=== PATIENT | female | born 1950 | race Caucasian/White ===

== ENCOUNTER 2017-12-19 18:39 | Emergency (ER) | payer MEDICARE, MEDICAID ==
[~2017-12-19] VITALS: Ht 165.1 cm; Wt 250.0 kg
[~2017-12-19 18:39] MED LIST: CIPR-230 PO; DICL75TA6 PO; DOCU100C40 PO; DULO30CA51 PO; HYDR-3965 PO; LANTUS SQ; LOVA20TA2 PO; MULT-342 PO; OXYC-150 PO; POLY17PO10 PO; TOLT4CAP14 PO; VALS80TA2 PO
[2017-12-19 18:41] VITALS: BP 111/40
[2017-12-19] MEDS ORDERED: HYDROcodone/acetaminophen 10/325mg tab PO ONE (23:00)
[2017-12-21] MEDS ORDERED: INSU100I29 SQ (03:59)
[2017-12-21] MEDS ORDERED: DULO20CA50 PO (03:59)
[2017-12-21] MEDS ORDERED: OXYB5TAB11 PO (03:59)
== END 2017-12-20 00:34 | disposition home or self-care (01) ==
LOC: ER 18:39
DX: S41.111A Laceration without foreign body of right upper arm, initial encounter (principal); E66.01 Morbid (severe) obesity due to excess calories; E11.9 Type 2 diabetes mellitus without complications; G89.29 Other chronic pain; Z90.49 Acquired absence of other specified parts of digestive tract; Z98.890 Other specified postprocedural states; Z88.5 Allergy status to narcotic agent; Z79.4 Long term (current) use of insulin; Z79.899 Other long term (current) drug therapy; W19.XXXA Unspecified fall, initial encounter; Y93.01 Activity, walking, marching and hiking; Y92.89 Other specified places as the place of occurrence of the external cause; Y99.9 Unspecified external cause status
CPT/HCPCS: 82948; 99283

== ENCOUNTER 2017-12-21 01:31 | Inpatient (IN) | payer MEDICARE, MEDICAID ==
[~2017-12-21] VITALS: Ht 165.1 cm; Wt 250.0 kg
[2017-12-21 02:56] LABS: EOSINOPHILS # (AUTO) 0.3 X10'3 (0-0.9); NEUTROPHILS # (AUTO) 7.4 X10'3 (1.8-7.7); PARTIAL THROMBOPLASTIN TIME 29 SECONDS (22-32); PROTHROMBIN TIME 9.8 SECONDS (9.0-12.0)
[2017-12-21 02:59] LABS: ALANINE AMINOTRANSFERASE 20 U/L (12-78); ALBUMIN 2.6 G/DL (3.4-5.0); ALBUMIN/GLOBULIN RATIO 0.5 (1.1-1.5); ALKALINE PHOSPHATASE 121 IU/L (46-116); ANION GAP 9 (8-16); ASPARTATE AMINO TRANSFERASE 15 U/L (10-37); BILIRUBIN,TOTAL 0.3 MG/DL (0.1-1.0); BLOOD UREA NITROGEN 65 MG/DL (7-18); BUN/CREATININE RATIO 24.3 (6.6-38.0); CHLORIDE 102 MMOL/L (99-107); CREATININE 2.67 MG/DL (0.40-0.90); GLUCOSE 201 MG/DL (70-104); MAGNESIUM 2.6 MG/DL (1.5-2.4); POTASSIUM 5.4 MMOL/L (3.5-5.1); SODIUM 136 MMOL/L (135-145); TOTAL CARBON DIOXIDE 24.7 MMOL/L (24-32); TOTAL PROTEIN 7.4 G/DL (6.4-8.2); eGFR 18 ML/MIN
[2017-12-21 03:01] LABS: BASOPHILS % (AUTO) 0.5 % (0-1); HEMATOCRIT 37.5 % (35.0-45.0); HEMOGLOBIN 12.3 g/dl (12.0-16.0); LYMPHOCYTES # (AUTO) 1.2 X10'3 (1.1-4.8); MEAN CORPUSCULAR HEMOGLOBIN 29.8 PG (27.0-31.0); MEAN CORPUSCULAR HGB CONC 32.7 % (33.0-36.5); MEAN CORPUSCULAR VOLUME 91.2 FL (78-98); MEAN PLATELET VOLUME 7.8 FL (7.4-10.4); MONOCYTES % (AUTO) 10.1 % (2-12); NEUTROPHILS % (AUTO) 74.4 % (42-75); PLATELET COUNT 344 X10'3 (140-440); RED BLOOD COUNT 4.11 X10'6 (4.20-5.60); RED CELL DISTRIBUTION WIDTH 13.9 % (11.5-14.5)
[2017-12-21 03:10] LABS: CLARITY,URINE CLEAR (Clear); COLOR,URINE YELLOW (Yellow); GLUCOSE, URINE NEGATIVE (Neg); KETONES,URINE NEGATIVE (Neg); LEUKOCYTE ESTERASE ,URINE NEGATIVE (Neg); NITRITES, URINE NEGATIVE (Neg); OCCULT BLOOD,URINE NEGATIVE (Neg); PH,URINE 5.5 (4.8-8.0); PROTEIN,URINE NEGATIVE (Neg); UA COLLECTION TYPE FOLEY CATH; UROBILINOGEN,URINE 0.2 E.U/dL (0.2-1.0)
[2017-12-21] MEDS ORDERED: normal saline 1000ML IV soln IVB ONE (03:15)
[2017-12-21] MEDS ORDERED: clindamycin 600mg/D5W 50ml 50 ML IV ONE (03:15)
[2017-12-21] MEDS ORDERED: normal saline 1000ml 1,000 ML IV SCH (03:32)
[2017-12-21] MEDS ORDERED: acetaminophen 650mg rectal suppository RC PRN (03:35)
[2017-12-21] MEDS ORDERED: dextrose ORAL solution 15 GM/59 ML bottle PO PRN ×2 (03:35)
[2017-12-21] MEDS ORDERED: acetaminophen 325mg tablet PO PRN ×2 (03:35)
[2017-12-21] MEDS ORDERED: diphenhydrAMINE 50 mg/ml inj IV PRN (03:35)
[2017-12-21] MEDS ORDERED: glucagon, human recombinant 1mg kit SUBCUT PRN (03:35)
[2017-12-21] MEDS ORDERED: morphine 2 MG/ML inj. syringe IV PRN ×2 (03:35)
[2017-12-21] MEDS ORDERED: metoclopramide 5 mg/ml inj IV PRN (03:35)
[2017-12-21] MEDS ORDERED: mag hydrox/Alum hydrox/simeth 30ml oral suspension PO PRN (03:35)
[2017-12-21] MEDS ORDERED: dextrose 50%-water 50ml dispensing syringe IV PRN ×2 (03:35)
[2017-12-21] MEDS ORDERED: magnesium hydroxide 30ml (MOM) UD suspension PO PRN (03:35)
[2017-12-21] MEDS ORDERED: MESSAGE TO PHARMACY PO ONE (03:35)
[2017-12-21] MEDS ORDERED: diphenhydrAMINE 25mg capsule PO PRN (03:35)
[2017-12-21] MEDS ORDERED: bisacodyl 10mg suppository rectal RC PRN (03:35)
[2017-12-21] MEDS ORDERED: HYDROmorphone 1 mg/ml syringe IV PRN ×2 (03:35)
[2017-12-21] MEDS ORDERED: sodium polystyrene sulfonate 15gm/60ml oral suspension PO ONE (03:40)
[2017-12-21] MEDS ORDERED: albuterol 2.5 MG/3 ML nebule NEB ONE (03:40)
[2017-12-21] MEDS ORDERED: DULO20CA50 PO (03:59)
[2017-12-21] MEDS ORDERED: INSU100I29 SQ (03:59)
[2017-12-21] MEDS ORDERED: OXYB5TAB11 PO (03:59)
[2017-12-21 04:02] LABS: HEMOGLOBIN A1C 7.3 % (4.5-6.2)
[2017-12-21 04:04] LABS: LIPASE 59 U/L (73-393); PHOSPHORUS 3.6 MG/DL (2.3-4.5); TROPONIN I < 0.04 NG/ML (0.0-0.05)
[2017-12-21] MEDS ORDERED: vancomycin/NS 1 GM ADD-VANTAGE 250 ML X 1 DOSE IV ONE ×2 (05:40→08:00)
[2017-12-21 08:00] VITALS: BP 115/43
[2017-12-21] MEDS ORDERED: piperacillin-tazo 2.25gm/50ml 50 ML IV SCH (08:00)
[2017-12-21] MEDS: docusate sod 100mg capsule PO SCH ×2 (08:59→20:07)
[2017-12-21] MEDS: methylPREDNISolone sod succ 125mg/2ml vial IV SCH ×2 (08:59→20:12)
[2017-12-21] MEDS: furosemide 40mg/4ml inj IV SCH ×2 (08:59→20:06)
[2017-12-21] MEDS: heparin, porcine 5000 units/ml vial SQ SCH ×2 (09:00→16:38)
[2017-12-21 10:08] LABS: CREATINE KINASE 160 U/L (26-192)
[2017-12-21 11:44] VITALS: BP 107/67
[2017-12-21] MEDS ORDERED: pneumococcal 23-VAL P-sac vacc 25 mcg/0.5ml vial IMVAC ONE (13:15)
[2017-12-21] MEDS: insulin Lispro (HumaLOG) vial - multi-dose SQ SCH ×2 (18:57→21:41)
[2017-12-21 20:00] VITALS: BP 116/49
[2017-12-22] VITALS: BP 109/53
[2017-12-22] MEDS: heparin, porcine 5000 units/ml vial SQ SCH ×3 (00:13→16:12)
[2017-12-22 04:58] LABS: BASOPHILS % (AUTO) 0.3 % (0-1); EOSINOPHILS % (AUTO) 0 % (0-6); HEMATOCRIT 36.1 % (35.0-45.0); HEMOGLOBIN 11.6 g/dl (12.0-16.0); LYMPHOCYTES # (AUTO) 0.7 X10'3 (1.1-4.8); LYMPHOCYTES % (AUTO) 6.2 % (21-51); MEAN CORPUSCULAR HEMOGLOBIN 29.4 PG (27.0-31.0); MEAN CORPUSCULAR HGB CONC 32.2 % (33.0-36.5); MEAN CORPUSCULAR VOLUME 91.2 FL (78-98); MEAN PLATELET VOLUME 8.2 FL (7.4-10.4); MONOCYTES # (AUTO) 0.2 X10'3 (0-0.9); NEUTROPHILS # (AUTO) 9.7 X10'3 (1.8-7.7); NEUTROPHILS % (AUTO) 91.5 % (42-75); PLATELET COUNT 330 X10'3 (140-440); RED BLOOD COUNT 3.96 X10'6 (4.20-5.60); RED CELL DISTRIBUTION WIDTH 14.3 % (11.5-14.5); WHITE BLOOD COUNT 10.6 X10'3 (4.5-11.0)
[2017-12-22 05:26] LABS: ALANINE AMINOTRANSFERASE 18 U/L (12-78); ALBUMIN 2.3 G/DL (3.4-5.0); ALBUMIN/GLOBULIN RATIO 0.5 (1.1-1.5); ALKALINE PHOSPHATASE 105 IU/L (46-116); ANION GAP 9 (8-16); ASPARTATE AMINO TRANSFERASE 9 U/L (10-37); BILIRUBIN,TOTAL 0.2 MG/DL (0.1-1.0); BLOOD UREA NITROGEN 53 MG/DL (7-18); BUN/CREATININE RATIO 26.5 (6.6-38.0); CALCIUM 8.7 MG/DL (8.5-10.1); CHLORIDE 105 MMOL/L (99-107); GLUCOSE 343 MG/DL (70-104); POTASSIUM 5.4 MMOL/L (3.5-5.1); SODIUM 139 MMOL/L (135-145); TOTAL CARBON DIOXIDE 24.8 MMOL/L (24-32); TOTAL PROTEIN 6.7 G/DL (6.4-8.2); eGFR 25 ML/MIN
[2017-12-22 07:00] VITALS: BP 121/58
[2017-12-22] MEDS: docusate sod 100mg capsule PO SCH ×2 (08:00→20:00)
[2017-12-22] MEDS: furosemide 40mg/4ml inj IV SCH ×2 (08:00→21:28)
[2017-12-22] MEDS: methylPREDNISolone sod succ 125mg/2ml vial IV SCH (08:00)
[2017-12-22] MEDS: insulin Lispro (HumaLOG) vial - multi-dose SQ SCH ×3 (09:15→18:36)
[2017-12-22] MEDS: nystatin 15 GM powder TP SCH ×2 (13:00→13:58)
[2017-12-22 20:00] VITALS: BP 123/52
[2017-12-22] MEDS: insulin glargine (Lantus) pen - multi-dose SQ SCH (21:39)
[2017-12-23] VITALS: BP 118/55
[2017-12-23] MEDS: heparin, porcine 5000 units/ml vial SQ SCH ×3 (01:46→15:43)
[2017-12-23] MEDS: HYDROcodone/acetaminophen 10/325mg tab PO PRN ×2 (03:11→13:19)
[2017-12-23 03:40] LABS: BASOPHILS # (AUTO) 0.1 X10'3 (0-0.2); BASOPHILS % (AUTO) 0.3 % (0-1); EOSINOPHILS % (AUTO) 0.1 % (0-6); HEMATOCRIT 36.7 % (35.0-45.0); HEMOGLOBIN 11.9 g/dl (12.0-16.0); LYMPHOCYTES # (AUTO) 1.4 X10'3 (1.1-4.8); LYMPHOCYTES % (AUTO) 7.8 % (21-51); MEAN CORPUSCULAR HEMOGLOBIN 29.6 PG (27.0-31.0); MEAN CORPUSCULAR HGB CONC 32.4 % (33.0-36.5); MEAN CORPUSCULAR VOLUME 91.2 FL (78-98); MEAN PLATELET VOLUME 7.6 FL (7.4-10.4); MONOCYTES # (AUTO) 1.4 X10'3 (0-0.9); MONOCYTES % (AUTO) 7.6 % (2-12); NEUTROPHILS # (AUTO) 15.1 X10'3 (1.8-7.7); NEUTROPHILS % (AUTO) 84.2 % (42-75); PLATELET COUNT 409 X10'3 (140-440); RED BLOOD COUNT 4.02 X10'6 (4.20-5.60); RED CELL DISTRIBUTION WIDTH 13.8 % (11.5-14.5); WHITE BLOOD COUNT 17.9 X10'3 (4.5-11.0)
[2017-12-23 03:53] LABS: ALANINE AMINOTRANSFERASE 18 U/L (12-78); ALBUMIN 2.4 G/DL (3.4-5.0); ALBUMIN/GLOBULIN RATIO 0.5 (1.1-1.5); ALKALINE PHOSPHATASE 89 IU/L (46-116); ANION GAP 6 (8-16); ASPARTATE AMINO TRANSFERASE 10 U/L (10-37); BILIRUBIN,TOTAL 0.2 MG/DL (0.1-1.0); BLOOD UREA NITROGEN 58 MG/DL (7-18); BUN/CREATININE RATIO 32.6 (6.6-38.0); CHLORIDE 105 MMOL/L (99-107); CREATININE 1.78 MG/DL (0.40-0.90); GLUCOSE 180 MG/DL (70-104); POTASSIUM 4.8 MMOL/L (3.5-5.1); SODIUM 140 MMOL/L (135-145); TOTAL CARBON DIOXIDE 29.1 MMOL/L (24-32); TOTAL PROTEIN 6.8 G/DL (6.4-8.2); eGFR 28 ML/MIN
[2017-12-23 07:21] VITALS: BP 131/58
[2017-12-23] MEDS: furosemide 40mg/4ml inj IV SCH ×2 (07:50→19:33)
[2017-12-23] MEDS: docusate sod 100mg capsule PO SCH ×2 (07:50→19:21)
[2017-12-23] MEDS: insulin Lispro (HumaLOG) vial - multi-dose SQ SCH ×3 (09:55→19:19)
[2017-12-23 12:35] VITALS: BP 117/52
[2017-12-23] MEDS: fluticasone nasal spray 16GM bottle NS PRN (13:44)
[2017-12-23 18:00] VITALS: BP 133/63
[2017-12-23] MEDS: insulin glargine (Lantus) pen - multi-dose SQ SCH (21:36)
[2017-12-24] VITALS: BP 114/62
[2017-12-24] MEDS: heparin, porcine 5000 units/ml vial SQ SCH ×4 (00:22→23:23)
[2017-12-24] MEDS: HYDROcodone/acetaminophen 10/325mg tab PO PRN ×2 (00:27→12:24)
[2017-12-24 05:10] LABS: BASOPHILS % (AUTO) 0.4 % (0-1); EOSINOPHILS # (AUTO) 0.4 X10'3 (0-0.9); HEMATOCRIT 40.8 % (35.0-45.0); HEMOGLOBIN 13.3 g/dl (12.0-16.0); LYMPHOCYTES % (AUTO) 15.4 % (21-51); MEAN CORPUSCULAR HEMOGLOBIN 29.6 PG (27.0-31.0); MEAN CORPUSCULAR HGB CONC 32.6 % (33.0-36.5); MEAN CORPUSCULAR VOLUME 90.6 FL (78-98); MONOCYTES # (AUTO) 1.3 X10'3 (0-0.9); MONOCYTES % (AUTO) 10.1 % (2-12); NEUTROPHILS # (AUTO) 9.1 X10'3 (1.8-7.7); NEUTROPHILS % (AUTO) 71.1 % (42-75); PLATELET COUNT 420 X10'3 (140-440); RED BLOOD COUNT 4.51 X10'6 (4.20-5.60); RED CELL DISTRIBUTION WIDTH 13.8 % (11.5-14.5); WHITE BLOOD COUNT 12.8 X10'3 (4.5-11.0)
[2017-12-24 05:36] LABS: ALANINE AMINOTRANSFERASE 49 U/L (12-78); ALBUMIN 2.6 G/DL (3.4-5.0); ALBUMIN/GLOBULIN RATIO 0.6 (1.1-1.5); ALKALINE PHOSPHATASE 105 IU/L (46-116); ANION GAP 13 (8-16); ASPARTATE AMINO TRANSFERASE 37 U/L (10-37); BILIRUBIN,TOTAL 0.4 MG/DL (0.1-1.0); BLOOD UREA NITROGEN 61 MG/DL (7-18); BUN/CREATININE RATIO 36.1 (6.6-38.0); CALCIUM 9.3 MG/DL (8.5-10.1); CHLORIDE 102 MMOL/L (99-107); CREATININE 1.69 MG/DL (0.40-0.90); GLUCOSE 166 MG/DL (70-104); POTASSIUM 4.4 MMOL/L (3.5-5.1); SODIUM 143 MMOL/L (135-145); TOTAL CARBON DIOXIDE 28.2 MMOL/L (24-32); TOTAL PROTEIN 7.2 G/DL (6.4-8.2); eGFR 30 ML/MIN
[2017-12-24] MEDS: furosemide 40mg/4ml inj IV SCH ×2 (07:04→20:16)
[2017-12-24] MEDS: docusate sod 100mg capsule PO SCH ×2 (07:05→20:00)
[2017-12-24 07:10] VITALS: BP 121/55
[2017-12-24] MEDS ORDERED: MESSAGE TO NURSING IV ONE (07:30)
[2017-12-24] MEDS: insulin Lispro (HumaLOG) vial - multi-dose SQ SCH ×3 (09:34→18:50)
[2017-12-24 13:18] VITALS: BP 119/47
[2017-12-24] MEDS: fluticasone nasal spray 16GM bottle NS PRN (17:35)
[2017-12-24 19:00] VITALS: BP 114/54
[2017-12-24] MEDS: insulin glargine (Lantus) pen - multi-dose SQ SCH (21:05)
[2017-12-25] VITALS: BP 133/57
[2017-12-25 06:09] LABS: BASOPHILS % (AUTO) 0.3 % (0-1); EOSINOPHILS # (AUTO) 0.3 X10'3 (0-0.9); EOSINOPHILS % (AUTO) 2.9 % (0-6); HEMATOCRIT 44.3 % (35.0-45.0); HEMOGLOBIN 14.3 g/dl (12.0-16.0); LYMPHOCYTES % (AUTO) 16.7 % (21-51); MEAN CORPUSCULAR HEMOGLOBIN 29.2 PG (27.0-31.0); MEAN CORPUSCULAR HGB CONC 32.3 % (33.0-36.5); MEAN CORPUSCULAR VOLUME 90.4 FL (78-98); MEAN PLATELET VOLUME 7.7 FL (7.4-10.4); MONOCYTES # (AUTO) 1.1 X10'3 (0-0.9); MONOCYTES % (AUTO) 9.3 % (2-12); NEUTROPHILS # (AUTO) 8.3 X10'3 (1.8-7.7); NEUTROPHILS % (AUTO) 70.8 % (42-75); PLATELET COUNT 383 X10'3 (140-440); RED CELL DISTRIBUTION WIDTH 13.7 % (11.5-14.5); WHITE BLOOD COUNT 11.8 X10'3 (4.5-11.0)
[2017-12-25 06:21] LABS: ALANINE AMINOTRANSFERASE 81 U/L (12-78); ALBUMIN 2.7 G/DL (3.4-5.0); ALBUMIN/GLOBULIN RATIO 0.6 (1.1-1.5); ALKALINE PHOSPHATASE 120 IU/L (46-116); ANION GAP 12 (8-16); ASPARTATE AMINO TRANSFERASE 44 U/L (10-37); BILIRUBIN,TOTAL 0.6 MG/DL (0.1-1.0); BLOOD UREA NITROGEN 65 MG/DL (7-18); BUN/CREATININE RATIO 39.4 (6.6-38.0); CALCIUM 9.1 MG/DL (8.5-10.1); CHLORIDE 98 MMOL/L (99-107); CREATININE 1.65 MG/DL (0.40-0.90); GLUCOSE 196 MG/DL (70-104); POTASSIUM 4.1 MMOL/L (3.5-5.1); SODIUM 140 MMOL/L (135-145); TOTAL CARBON DIOXIDE 30.3 MMOL/L (24-32); TOTAL PROTEIN 7.3 G/DL (6.4-8.2); eGFR 31 ML/MIN
[2017-12-25 06:50] VITALS: BP 107/67
[2017-12-25] MEDS: furosemide 40mg/4ml inj IV SCH ×2 (06:59→20:27)
[2017-12-25] MEDS: heparin, porcine 5000 units/ml vial SQ SCH ×3 (07:00→23:42)
[2017-12-25] MEDS: docusate sod 100mg capsule PO SCH ×2 (07:02→20:00)
[2017-12-25] MEDS: insulin Lispro (HumaLOG) vial - multi-dose SQ SCH ×3 (10:29→19:01)
[2017-12-25 12:11] VITALS: BP 141/64
[2017-12-25] MEDS: HYDROcodone/acetaminophen 10/325mg tab PO PRN ×2 (12:29→23:53)
[2017-12-25] MEDS ORDERED: DULO20CA50 PO (13:34)
[2017-12-25] MEDS: levoFLOXACIN 750MG TABLET PO SCH (14:53)
[2017-12-25] MEDS: losartan 50mg tablet PO SCH (14:53)
[2017-12-25 19:00] VITALS: BP 99/63
[2017-12-25] MEDS ORDERED: INSULIN DEGLUDEC 70 UNIT SQ SCH (21:00)
[2017-12-25] MEDS: insulin glargine (Lantus) pen - multi-dose SQ SCH (21:38)
[2017-12-26] VITALS: BP 110/50
[2017-12-26] MEDS: ondansetron/PF 4mg/2ml inj IV PRN ×2 (03:40→11:20)
[2017-12-26 06:17] LABS: BASOPHILS % (AUTO) 0.4 % (0-1); EOSINOPHILS # (AUTO) 0.3 X10'3 (0-0.9); EOSINOPHILS % (AUTO) 2.7 % (0-6); HEMATOCRIT 43.3 % (35.0-45.0); HEMOGLOBIN 14.1 g/dl (12.0-16.0); LYMPHOCYTES # (AUTO) 1.8 X10'3 (1.1-4.8); LYMPHOCYTES % (AUTO) 15.2 % (21-51); MEAN CORPUSCULAR HEMOGLOBIN 29.5 PG (27.0-31.0); MEAN CORPUSCULAR HGB CONC 32.6 % (33.0-36.5); MEAN CORPUSCULAR VOLUME 90.3 FL (78-98); MEAN PLATELET VOLUME 7.2 FL (7.4-10.4); MONOCYTES # (AUTO) 0.8 X10'3 (0-0.9); MONOCYTES % (AUTO) 6.9 % (2-12); NEUTROPHILS # (AUTO) 8.9 X10'3 (1.8-7.7); NEUTROPHILS % (AUTO) 74.8 % (42-75); PLATELET COUNT 353 X10'3 (140-440); RED CELL DISTRIBUTION WIDTH 13.7 % (11.5-14.5); WHITE BLOOD COUNT 11.9 X10'3 (4.5-11.0)
[2017-12-26 06:32] LABS: ALANINE AMINOTRANSFERASE 71 U/L (12-78); ALBUMIN 2.6 G/DL (3.4-5.0); ALBUMIN/GLOBULIN RATIO 0.6 (1.1-1.5); ALKALINE PHOSPHATASE 111 IU/L (46-116); ANION GAP 7 (8-16); ASPARTATE AMINO TRANSFERASE 30 U/L (10-37); BILIRUBIN,TOTAL 0.5 MG/DL (0.1-1.0); CALCIUM 8.8 MG/DL (8.5-10.1); CHLORIDE 98 MMOL/L (99-107); CREATININE 1.75 MG/DL (0.40-0.90); GLUCOSE 240 MG/DL (70-104); POTASSIUM 4.3 MMOL/L (3.5-5.1); SODIUM 137 MMOL/L (135-145); TOTAL CARBON DIOXIDE 31.8 MMOL/L (24-32); eGFR 29 ML/MIN
[2017-12-26 07:01] LABS: BLOOD UREA NITROGEN 72 MG/DL (7-18); BUN/CREATININE RATIO 41.1 (6.6-38.0)
[2017-12-26 07:26] VITALS: BP 100/56
[2017-12-26] MEDS: heparin, porcine 5000 units/ml vial SQ SCH ×2 (07:42→15:47)
[2017-12-26] MEDS: duloxetine 30mg CAPSULE.DR PO SCH (07:42)
[2017-12-26] MEDS: atorvastatin 10mg tablet PO SCH (07:43)
[2017-12-26] MEDS: docusate sod 100mg capsule PO SCH ×2 (07:44→21:28)
[2017-12-26] MEDS: losartan 50mg tablet PO SCH (08:00)
[2017-12-26] MEDS: insulin Lispro (HumaLOG) vial - multi-dose SQ SCH ×3 (09:21→18:44)
[2017-12-26] MEDS: furosemide 40mg tablet PO SCH (09:21)
[2017-12-26] MEDS: levoFLOXACIN 750MG TABLET PO SCH (11:15)
[2017-12-26 11:30] VITALS: BP 102/48
[2017-12-26] MEDS: HYDROcodone/acetaminophen 10/325mg tab PO PRN ×2 (13:19→22:34)
[2017-12-26 19:00] VITALS: BP_SYST 108; BP_SYST 99; BP_DIAS 44; BP_DIAS 68
[2017-12-26] MEDS: insulin glargine (Lantus) pen - multi-dose SQ SCH (23:12)
[2017-12-27] VITALS: BP 104/47
[2017-12-27] MEDS: heparin, porcine 5000 units/ml vial SQ SCH ×4 (00:23→23:32)
[2017-12-27] MEDS: ondansetron/PF 4mg/2ml inj IV PRN (05:44)
[2017-12-27 07:00] VITALS: BP 93/44
[2017-12-27] MEDS: furosemide 40mg tablet PO SCH (08:00)
[2017-12-27] MEDS: losartan 50mg tablet PO SCH (08:00)
[2017-12-27] MEDS: docusate sod 100mg capsule PO SCH ×2 (08:22→19:16)
[2017-12-27] MEDS: duloxetine 30mg CAPSULE.DR PO SCH (08:22)
[2017-12-27] MEDS: lactobacillus rhamnosus 10,000 MMU CELLS/CAPSULE PO SCH ×2 (08:22→19:16)
[2017-12-27] MEDS: atorvastatin 10mg tablet PO SCH (08:24)
[2017-12-27] MEDS: HYDROcodone/acetaminophen 10/325mg tab PO PRN ×2 (08:27→23:33)
[2017-12-27] MEDS: insulin Lispro (HumaLOG) vial - multi-dose SQ SCH ×4 (08:36→22:43)
[2017-12-27 09:54] VITALS: BP 116/48
[2017-12-27 13:34] VITALS: BP 113/50
[2017-12-27 19:00] VITALS: BP 107/39
[2017-12-27] MEDS: temazepam 15mg capsule PO PRN (22:40)
[2017-12-27] MEDS: insulin glargine (Lantus) pen - multi-dose SQ SCH (22:45)
[2017-12-28] VITALS: BP 102/44
[2017-12-28 05:21] LABS: CHOL/HDL RATIO 3.6 (0.00-4.99); CHOLESTEROL 144 MG/DL (0-200); HDL CHOLESTEROL 40 MG/DL (35-60); LDL CHOLESTEROL 87 MG/DL (50-100); TRIGLYCERIDES 124 MG/DL (20-135)
[2017-12-28 07:00] VITALS: BP 99/28
[2017-12-28] MEDS: losartan 50mg tablet PO SCH (08:00)
[2017-12-28] MEDS: furosemide 40mg tablet PO SCH (08:00)
[2017-12-28] MEDS: atorvastatin 10mg tablet PO SCH (08:59)
[2017-12-28] MEDS: duloxetine 30mg CAPSULE.DR PO SCH (08:59)
[2017-12-28] MEDS: lactobacillus rhamnosus 10,000 MMU CELLS/CAPSULE PO SCH ×2 (08:59→21:03)
[2017-12-28] MEDS: docusate sod 100mg capsule PO SCH ×2 (08:59→21:03)
[2017-12-28] MEDS: heparin, porcine 5000 units/ml vial SQ SCH ×2 (09:00→17:00)
[2017-12-28] MEDS: HYDROcodone/acetaminophen 5mg/325mg tablet PO PRN (09:02)
[2017-12-28] MEDS: insulin Lispro (HumaLOG) vial - multi-dose SQ SCH ×4 (09:10→21:00)
[2017-12-28 11:00] VITALS: BP 96/51
[2017-12-28] MEDS: levoFLOXACIN 750MG TABLET PO SCH (11:20)
[2017-12-28 20:00] VITALS: BP 124/42
[2017-12-28] MEDS: insulin glargine (Lantus) pen - multi-dose SQ SCH (21:02)
[2017-12-28] MEDS: HYDROcodone/acetaminophen 10/325mg tab PO PRN (21:06)
[2017-12-28] MEDS: polyethylene glycol 3350 17gm powd pack PO SCH (21:07)
[2017-12-29] VITALS: BP 109/44
[2017-12-29] MEDS: heparin, porcine 5000 units/ml vial SQ SCH ×4 (01:27→23:49)
[2017-12-29 05:01] LABS: BASOPHILS # (AUTO) 0.1 X10'3 (0-0.2); BASOPHILS % (AUTO) 0.6 % (0-1); EOSINOPHILS # (AUTO) 0.5 X10'3 (0-0.9); EOSINOPHILS % (AUTO) 4.3 % (0-6); HEMATOCRIT 38.5 % (35.0-45.0); HEMOGLOBIN 12.5 g/dl (12.0-16.0); LYMPHOCYTES # (AUTO) 2.6 X10'3 (1.1-4.8); LYMPHOCYTES % (AUTO) 23.8 % (21-51); MEAN CORPUSCULAR HEMOGLOBIN 29.3 PG (27.0-31.0); MEAN CORPUSCULAR HGB CONC 32.6 % (33.0-36.5); MEAN CORPUSCULAR VOLUME 89.9 FL (78-98); MONOCYTES # (AUTO) 1.3 X10'3 (0-0.9); MONOCYTES % (AUTO) 12.3 % (2-12); NEUTROPHILS # (AUTO) 6.3 X10'3 (1.8-7.7); PLATELET COUNT 282 X10'3 (140-440); RED BLOOD COUNT 4.28 X10'6 (4.20-5.60); WHITE BLOOD COUNT 10.8 X10'3 (4.5-11.0)
[2017-12-29 05:19] LABS: ALANINE AMINOTRANSFERASE 59 U/L (12-78); ALBUMIN 2.5 G/DL (3.4-5.0); ALBUMIN/GLOBULIN RATIO 0.6 (1.1-1.5); ALKALINE PHOSPHATASE 101 IU/L (46-116); ANION GAP 9 (8-16); ASPARTATE AMINO TRANSFERASE 29 U/L (10-37); BILIRUBIN,TOTAL 0.5 MG/DL (0.1-1.0); BLOOD UREA NITROGEN 63 MG/DL (7-18); BUN/CREATININE RATIO 40.9 (6.6-38.0); CALCIUM 9.3 MG/DL (8.5-10.1); CHLORIDE 101 MMOL/L (99-107); CREATININE 1.54 MG/DL (0.40-0.90); GLUCOSE 200 MG/DL (70-104); SODIUM 138 MMOL/L (135-145); TOTAL PROTEIN 6.4 G/DL (6.4-8.2); eGFR 34 ML/MIN
[2017-12-29 07:00] VITALS: BP_SYST 111; BP_SYST 137; BP_DIAS 49; BP_DIAS 84
[2017-12-29] MEDS: duloxetine 30mg CAPSULE.DR PO SCH (08:30)
[2017-12-29] MEDS: atorvastatin 10mg tablet PO SCH (08:30)
[2017-12-29] MEDS: lactobacillus rhamnosus 10,000 MMU CELLS/CAPSULE PO SCH ×2 (08:30→19:05)
[2017-12-29] MEDS: docusate sod 100mg capsule PO SCH ×2 (08:31→19:05)
[2017-12-29] MEDS: furosemide 40mg tablet PO SCH (08:31)
[2017-12-29] MEDS: losartan 50mg tablet PO SCH (08:31)
[2017-12-29] MEDS: insulin Lispro (HumaLOG) vial - multi-dose SQ SCH ×3 (08:43→18:49)
[2017-12-29 10:50] VITALS: BP 106/48
[2017-12-29 11:00] VITALS: BP 106/48
[2017-12-29] MEDS: HYDROcodone/acetaminophen 5mg/325mg tablet PO PRN (12:34)
[2017-12-29] MEDS: HYDROcodone/acetaminophen 10/325mg tab PO PRN ×2 (12:59→19:10)
[2017-12-29 18:00] VITALS: BP 100/54
[2017-12-29] MEDS: polyethylene glycol 3350 17gm powd pack PO SCH (21:00)
[2017-12-29] MEDS: temazepam 15mg capsule PO PRN (21:07)
[2017-12-29] MEDS: insulin glargine (Lantus) pen - multi-dose SQ SCH (21:11)
[2017-12-30] VITALS: BP 90/52
[2017-12-30 04:48] LABS: BASOPHILS # (AUTO) 0.1 X10'3 (0-0.2); EOSINOPHILS # (AUTO) 0.5 X10'3 (0-0.9); EOSINOPHILS % (AUTO) 4.9 % (0-6); HEMATOCRIT 39.5 % (35.0-45.0); HEMOGLOBIN 12.8 g/dl (12.0-16.0); LYMPHOCYTES # (AUTO) 2.7 X10'3 (1.1-4.8); LYMPHOCYTES % (AUTO) 28.7 % (21-51); MEAN CORPUSCULAR HEMOGLOBIN 29.2 PG (27.0-31.0); MEAN CORPUSCULAR HGB CONC 32.5 % (33.0-36.5); MEAN PLATELET VOLUME 8.2 FL (7.4-10.4); MONOCYTES # (AUTO) 1.3 X10'3 (0-0.9); MONOCYTES % (AUTO) 13.7 % (2-12); NEUTROPHILS # (AUTO) 4.9 X10'3 (1.8-7.7); NEUTROPHILS % (AUTO) 51.7 % (42-75); PLATELET COUNT 249 X10'3 (140-440); RED BLOOD COUNT 4.39 X10'6 (4.20-5.60); RED CELL DISTRIBUTION WIDTH 14.5 % (11.5-14.5); WHITE BLOOD COUNT 9.5 X10'3 (4.5-11.0)
[2017-12-30 05:03] LABS: ALANINE AMINOTRANSFERASE 56 U/L (12-78); ALBUMIN 2.6 G/DL (3.4-5.0); ALBUMIN/GLOBULIN RATIO 0.7 (1.1-1.5); ALKALINE PHOSPHATASE 105 IU/L (46-116); ANION GAP 9 (8-16); ASPARTATE AMINO TRANSFERASE 26 U/L (10-37); BILIRUBIN,TOTAL 0.5 MG/DL (0.1-1.0); BLOOD UREA NITROGEN 62 MG/DL (7-18); BUN/CREATININE RATIO 34.4 (6.6-38.0); CALCIUM 9.6 MG/DL (8.5-10.1); CHLORIDE 103 MMOL/L (99-107); GLUCOSE 213 MG/DL (70-104); POTASSIUM 4.1 MMOL/L (3.5-5.1); SODIUM 140 MMOL/L (135-145); TOTAL CARBON DIOXIDE 28.2 MMOL/L (24-32); TOTAL PROTEIN 6.4 G/DL (6.4-8.2); eGFR 28 ML/MIN
[2017-12-30 07:16] VITALS: BP 111/42
[2017-12-30 07:18] VITALS: BP 111/42
[2017-12-30 07:21] VITALS: BP 94/49
[2017-12-30] MEDS ORDERED: fluconazole/NS 400mg/200ml bag 200 ML IV SCH (08:00)
[2017-12-30] MEDS: docusate sod 100mg capsule PO SCH (08:14)
[2017-12-30] MEDS: lactobacillus rhamnosus 10,000 MMU CELLS/CAPSULE PO SCH (08:15)
[2017-12-30] MEDS: losartan 50mg tablet PO SCH (08:15)
[2017-12-30] MEDS: duloxetine 30mg CAPSULE.DR PO SCH (08:16)
[2017-12-30] MEDS: furosemide 40mg tablet PO SCH (08:16)
[2017-12-30] MEDS: atorvastatin 10mg tablet PO SCH (08:17)
[2017-12-30] MEDS: heparin, porcine 5000 units/ml vial SQ SCH (08:17)
[2017-12-30] MEDS: insulin Lispro (HumaLOG) vial - multi-dose SQ SCH ×2 (08:23→14:16)
[2017-12-30] MEDS: HYDROcodone/acetaminophen 10/325mg tab PO PRN (10:03)
[2017-12-30] MEDS: levoFLOXACIN 750MG TABLET PO SCH (11:33)
[2017-12-30 12:22] VITALS: BP 117/52
[2017-12-30] MEDS ORDERED: FLUC200T8 PO (13:50)
[2017-12-30] MEDS ORDERED: ONDA4TAB12 PO (13:50)
[2017-12-30] MEDS ORDERED: FURO40TA4 PO (13:50)
[2017-12-30] MEDS ORDERED: FLUT16SP18 NS (13:50)
[2017-12-31] MEDS ORDERED: losartan 25mg tablet PO SCH (08:00)
== END 2017-12-30 14:40 | disposition home health service (06) | DRG 682 ==
LOC: ER 01:31 → ED HOLD 03:32 → SUR 3N 05:30
PROVIDERS: ADMIT Family Medicine; ATTEND Family Medicine
PROC: 3E0234Z Introduction of Serum, Toxoid and Vaccine into Muscle, Percutaneous Approach (ICD-10-PCS; principal; 2017-12-21)
DX: N17.9 Acute kidney failure, unspecified (principal); E43 Unspecified severe protein-calorie malnutrition; L03.115 Cellulitis of right lower limb; Z68.45 Body mass index [BMI] 70 or greater, adult; L03.116 Cellulitis of left lower limb; E66.01 Morbid (severe) obesity due to excess calories; E87.5 Hyperkalemia; J45.909 Unspecified asthma, uncomplicated; L13.9 Bullous disorder, unspecified; B35.6 Tinea cruris; E11.22 Type 2 diabetes mellitus with diabetic chronic kidney disease; E11.65 Type 2 diabetes mellitus with hyperglycemia; E78.5 Hyperlipidemia, unspecified; I12.9 Hypertensive chronic kidney disease with stage 1 through stage 4 chronic kidney disease, or unspecified chronic kidney disease; N18.3 Chronic kidney disease, stage 3 (moderate); W06.XXXA Fall from bed, initial encounter; S86.912A Strain of unspecified muscle(s) and tendon(s) at lower leg level, left leg, initial encounter; B37.2 Candidiasis of skin and nail; G89.29 Other chronic pain; Z60.2 Problems related to living alone; I27.81 Cor pulmonale (chronic); E11.40 Type 2 diabetes mellitus with diabetic neuropathy, unspecified; M17.12 Unilateral primary osteoarthritis, left knee; M25.762 Osteophyte, left knee; R09.82 Postnasal drip; Z90.49 Acquired absence of other specified parts of digestive tract; Z98.891 History of uterine scar from previous surgery; Z88.6 Allergy status to analgesic agent; Z88.8 Allergy status to other drugs, medicaments and biological substances; Z79.4 Long term (current) use of insulin; Z23 Encounter for immunization; Y99.8 Other external cause status; Y93.89 Activity, other specified; Y92.89 Other specified places as the place of occurrence of the external cause
CPT/HCPCS: 36415; 71045; 73560; 80053; 80061; 81003; 82550; 82948; 83036; 83605; 83690; 83735; 83880; 84100; 84145; 84443; 84484; 85025; 85610; 85730; 87040; 87070; 93005; 93306; 93970; 94640; 94760; 96365; 97110; 97116; 97161; 97530; 97535; 99285; G0378; J1450; J1644; J1815; J1940; J2405; J2543; J2930; J3370; J3490

== ENCOUNTER 2021-05-04 17:46 | Emergency (ER) | payer OTHER, MEDICAID ==
[~2021-05-04] VITALS: Ht 167.6 cm; Wt 227.3 kg
[~2021-05-04 17:46] MED LIST changes: -CIPR-230 PO; -DICL75TA6 PO; -DOCU100C40 PO; -DULO30CA51 PO; +DULO30CA52 PO; +GABA300C PO; -HYDR-3965 PO; +INSU100I29 SQ; +KEN0.1O TP; -LANTUS SQ; -MULT-342 PO; +OXYB10TA30 PO; -OXYC-150 PO; -POLY17PO10 PO; -TOLT4CAP14 PO
--- NOTE | 2021-05-04 18:34 | NUR ---
patient has been straight cath will send urine to the lab
[2021-05-04 18:56] LABS: CLARITY,URINE SLIGHTLY CLOUDY (Clear); COLOR,URINE YELLOW (Yellow); GLUCOSE, URINE NEGATIVE (Neg); KETONES,URINE TRACE mg/dl (Neg); LEUKOCYTE ESTERASE ,URINE NEGATIVE (Neg); NITRITES, URINE POSITIVE (Neg); OCCULT BLOOD,URINE TRACE-INTACT (Neg); PH,URINE 5.5 (4.8-8.0); PROTEIN,URINE NEGATIVE (Neg); UROBILINOGEN,URINE 0.2 E.U/dL (0.2-1.0)
[2021-05-04 19:00] LABS: BASOPHILS # (AUTO) 0.1 X10'3 (0-0.2); BASOPHILS % (AUTO) 0.6 % (0-1); EOSINOPHILS # (AUTO) 0.1 X10'3 (0-0.9); HEMOGLOBIN 14.8 g/dl (12.0-16.0); LYMPHOCYTES # (AUTO) 1.8 X10'3 (1.1-4.8); LYMPHOCYTES % (AUTO) 18.6 % (21-51); MEAN CORPUSCULAR HEMOGLOBIN 29.4 PG (27.0-31.0); MEAN CORPUSCULAR HGB CONC 32.8 g/dL (33.0-36.5); MEAN CORPUSCULAR VOLUME 89.6 FL (78-98); MONOCYTES # (AUTO) 1.7 X10'3 (0-0.9); MONOCYTES % (AUTO) 17.9 % (2-12); NEUTROPHILS # (AUTO) 5.9 X10'3 (1.8-7.7); NEUTROPHILS % (AUTO) 61.9 % (42-75); PLATELET COUNT 286 X10'3 (140-440); RED BLOOD COUNT 5.02 X10'6 (4.20-5.60); RED CELL DISTRIBUTION WIDTH 15.1 % (11.5-14.5); WHITE BLOOD COUNT 9.5 X10'3 (4.5-11.0)
[2021-05-04 19:07] LABS: UA COLLECTION TYPE STRAIGHT CATH
[2021-05-04 19:14] LABS: BACTERIA,URINE 4+ /HPF (Neg); MUCUS STRANDS FEW /LPF (Neg); RBC,URINE 0-2 /HPF (0-2); SQUAMOUS EPITHELIAL CELL,UR FEW /LPF (FEW)
[2021-05-04 19:23] LABS: ALANINE AMINOTRANSFERASE 15 U/L (12-78); ALBUMIN 2.2 G/DL (3.4-5.0); ALBUMIN/GLOBULIN RATIO 0.6 (1.1-1.5); ALKALINE PHOSPHATASE 121 IU/L (46-116); ANION GAP 13 (8-16); ASPARTATE AMINO TRANSFERASE 14 U/L (10-37); BILIRUBIN,TOTAL 0.5 MG/DL (0.1-1.0); BLOOD UREA NITROGEN 23 MG/DL (7-18); BUN/CREATININE RATIO 26.7 (6.6-38.0); CALCIUM 8.7 MG/DL (8.5-10.1); CHLORIDE 100 MMOL/L (99-107); CREATININE 0.86 MG/DL (0.40-0.90); GLUCOSE 134 MG/DL (70-104); POTASSIUM 4.3 MMOL/L (3.5-5.1); SODIUM 138 MMOL/L (135-145); TOTAL CARBON DIOXIDE 25.1 MMOL/L (24-32); TOTAL PROTEIN 5.9 G/DL (6.4-8.2); eGFR 65 ML/MIN
[2021-05-04] MEDS ORDERED: POLY17PO10 PO (20:39)
[2021-05-04] MEDS ORDERED: CEPH250T PO (20:39)
[2021-05-04 21:13] LABS: PLATELET ESTIMATE NORMAL; TOTAL CELLS COUNTED 100
--- NOTE | 2021-05-05 03:20 | NUR ---
PT UPDATED ON AMBULANCE RIDE HOME, OFFERED FOOD AND DRINK, CURRENTLY ON MONITOR. VS WITHIN NORMAL LIMITS.
--- NOTE | 2021-05-05 04:00 | NUR ---
UPDATED PT ON CURRENT STATUS, REPOSITIONED IN BED.
--- NOTE | 2021-05-05 04:37 | NUR ---
Carlos gutierrez in [facility] - 05/05/21 at 0438 by WIL A
--- NOTE | 2021-05-05 07:47 | NUR ---
placed pillow to left side,repositioned.call light within reach.
[2021-05-05] MEDS ORDERED: acetaminophen 325mg tablet PO STA (09:19)
--- NOTE | 2021-05-05 09:23 | NUR ---
requesting tylenol for headache, verbal order obtained from dr. Barnett.
--- NOTE | 2021-05-05 09:27 | NUR ---
offered to reposition but refused at this time.stated "im ok".
[2021-05-05 09:59] VITALS: BP 105/67
== END 2021-05-05 10:02 | disposition home or self-care (01) ==
LOC: ER 17:47
DX: N39.0 Urinary tract infection, site not specified (principal); K59.00 Constipation, unspecified; R53.81 Other malaise; E78.00 Pure hypercholesterolemia, unspecified; I10 Essential (primary) hypertension; E11.9 Type 2 diabetes mellitus without complications; G89.29 Other chronic pain; L89.319 Pressure ulcer of right buttock, unspecified stage; Z87.440 Personal history of urinary (tract) infections; Z90.49 Acquired absence of other specified parts of digestive tract; Z60.2 Problems related to living alone; Z88.8 Allergy status to other drugs, medicaments and biological substances; Z79.2 Long term (current) use of antibiotics; Z79.899 Other long term (current) drug therapy; Z98.891 History of uterine scar from previous surgery; Z90.89 Acquired absence of other organs; Z86.16 Personal history of COVID-19
CPT/HCPCS: 36415; 80053; 81001; 85007; 85025; 87077; 87088; 87186; 99283; 99285

== ENCOUNTER 2022-10-01 19:22 | Emergency (ER) | payer BC, MEDICAID ==
[~2022-10-01] VITALS: Ht 165.1 cm; Wt 146.4 kg
[2022-10-01 19:42] VITALS: TEMP 99.3
[2022-10-01 21:18] LABS: BILIRUBIN,URINE SMALL (Neg); CLARITY,URINE CLEAR (Clear); COLOR,URINE YELLOW (Yellow); GLUCOSE, URINE >=1000 mg/dl (Neg); KETONES,URINE 40 mg/dl (Neg); LEUKOCYTE ESTERASE ,URINE NEGATIVE (Neg); NITRITES, URINE NEGATIVE (Neg); OCCULT BLOOD,URINE NEGATIVE (Neg); PROTEIN,URINE NEGATIVE (Neg); UROBILINOGEN,URINE 0.2 E.U/dL (0.2-1.0)
[2022-10-01 21:24] LABS: UA COLLECTION TYPE STRAIGHT CATH
[2022-10-01 21:27] LABS: MUCUS STRANDS FEW /LPF (Neg); SQUAMOUS EPITHELIAL CELL,UR FEW /LPF (FEW)
[2022-10-01 21:28] LABS: WBC,URINE 0-4 /HPF (0-4)
[2022-10-01 21:29] LABS: BACTERIA,URINE FEW /HPF (Neg); RBC,URINE NONE SEEN /HPF (0-2)
[2022-10-01 21:30] LABS: HYALINE CASTS 0-3 /LPF (NEGATIVE); RENAL CELLS, URINE FEW /HPF
[2022-10-01] MEDS ORDERED: FOSFOMYCIN TROMETHAMINE 3 GM PACKET PO ONE (21:40)
[2022-10-01 22:27] VITALS: BP 119/56; PULSE 86; RESP 17; O2SAT 98
== END 2022-10-01 22:32 | disposition home or self-care (01) ==
LOC: ER 19:23
DX: N39.0 Urinary tract infection, site not specified (principal); E11.9 Type 2 diabetes mellitus without complications; Z79.899 Other long term (current) drug therapy; E78.00 Pure hypercholesterolemia, unspecified; I10 Essential (primary) hypertension; J44.9 Chronic obstructive pulmonary disease, unspecified; Z88.8 Allergy status to other drugs, medicaments and biological substances; Z88.5 Allergy status to narcotic agent; Z79.84 Long term (current) use of oral hypoglycemic drugs; Z90.49 Acquired absence of other specified parts of digestive tract
CPT/HCPCS: 81001; 99283; A4353